=== PATIENT | male | born 1965 | race Caucasian/White ===

== ENCOUNTER → 2023-06-13 14:20 | Outpatient (REF) | payer OTHER, SELFPAY | LOC: HWRAD 14:20 | PROVIDERS: ATTENDING PHYSICIAN Registered Nurse | DX: R10.32 Left lower quadrant pain (principal) | CPT/HCPCS: 74176 ==

== ENCOUNTER → 2024-04-28 08:19 | Outpatient (REF) | payer OTHER, SELFPAY | LOC: HWRAD 08:19 | PROVIDERS: ATTENDING PHYSICIAN Otolaryngology; FAMILY PHYSICIAN Family Medicine | DX: J34.1 Cyst and mucocele of nose and nasal sinus (principal) | CPT/HCPCS: 70486 ==

== ENCOUNTER 2025-04-07 07:19 | Day surgery (SDC) | payer OTHER, SELFPAY ==
[2025-04-07 07:05] VITALS: BMI 26.3
[2025-04-07 07:10] VITALS: BMI 26.3
[2025-04-07 07:15] VITALS: BP 131/88
[2025-04-07 08:09] VITALS: BP 110/74
[2025-04-07 08:15] VITALS: BP 114/91
[2025-04-07 08:30] VITALS: BP 119/87
[2025-04-07 08:37] VITALS: BP 122/89
== END 2025-04-07 08:50 | disposition home or self-care (01) ==
LOC: SDS 07:19
PROVIDERS: ATTENDING PHYSICIAN Specialist
DX: Z12.11 Encounter for screening for malignant neoplasm of colon (principal); K63.89 Other specified diseases of intestine; K52.9 Noninfective gastroenteritis and colitis, unspecified; Z86.0101 Personal history of adenomatous and serrated colon polyps
CPT/HCPCS: 45380; 88305